=== PATIENT | male | born 1995 | race Caucasian/White ===

== ENCOUNTER 2018-01-24 13:12 | Emergency (ER) | payer OTHER ==
[~2018-01-24] VITALS: Ht 175.3 cm; Wt 69.5 kg
[2018-01-24 13:16] VITALS: BP 133/75
[2018-01-24] MEDS ORDERED: DEXAMETHASONE 4 MG TABLET ONE (13:44)
[2018-01-24] MEDS ORDERED: DEXAMETHASONE 4 MG TABLET PO ONE (14:00)
== END 2018-01-24 13:51 | disposition home or self-care (01) ==
LOC: ED 13:45
DX: J02.0 Streptococcal pharyngitis (principal)
CPT/HCPCS: 99283